=== PATIENT | male | born 1935 | race American Indian/Alaskan Native ===

== ENCOUNTER 2016-11-23 10:17 | Outpatient (CLI) | payer MEDICARE ==
--- NOTE | 2016-11-23 12:59 | XRay Report ---
CHEST TWO VIEWS: 11/23/16 10:17:00 CLINICAL: Cough. COMPARISON: 10/22/15 FINDINGS: Normal size heart with left ventricular contour.Normal pulmonary vessels. Stable aortic tortuosity and calcification. The lungs are normally expanded and clear.The bones and soft tissues are unremarkable. 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
== END 2016-11-23 10:18 | disposition home or self-care (01) ==
LOC: SPVIMAG 10:17
PROVIDERS: ATTEND Nurse Practitioner
DX: R05 Cough (principal)
CPT/HCPCS: 71020

== ENCOUNTER 2017-03-06 15:12 | Outpatient (CLI) | payer MEDICARE ==
--- NOTE | 2017-03-07 07:23 | XRay Report ---
Right hip 2 views: History: Pain. Findings: The articular surfaces of the hip joint appears unremarkable. No fracture dislocation or soft tissue calcification. There is cortical irregularity noted at the right iliac bone superior to the lateral aspect of the acetabulum. This may be secondary to old injury or a benign lesion. CT scan recommended for further evaluation. Impression: Findings as detailed above.
== END 2017-03-06 15:13 | disposition home or self-care (01) ==
LOC: SPVIMAG 15:12
PROVIDERS: ATTEND Internal Medicine
DX: M25.551 Pain in right hip (principal); I10 Essential (primary) hypertension; J18.9 Pneumonia, unspecified organism; Z79.899 Other long term (current) drug therapy